=== PATIENT | female | born 1950 | race Two or more races ===

== ENCOUNTER → 2017-08-26 | Outpatient (CLI) | payer OTHER, MEDICARE ==
[~2017-08-26] MED LIST: ASPI1TAB PO; ATEN50TA2 PO; ATOR1TAB21 PO; CALC1CAP31 PO; FEBU40TA PO; FURO20TA2 PO; FURO40TA2 PO; HYDR-3713 PO; HYDR12CA PO; INSUDET SC; INSUHUMDS SC; ISOVUE-300 61% 50ML VIAL (Q9967) As Ordered ONE; JANU25TA PO; LIDOCAINE 2% MDV 20 ML VIAL As Ordered ONE; LISI-542 PO; MIDAZOLAM INJ 2 MG/2 ML VIAL (J2250) As Ordered ONE; MOME50SP; NYST10PW TOP; POTA10PO PO; RENV2TAB PO; TYLETAB14 PO; VITA100066 PO; fentaNYL 100 MCG/2 ML INJECTION (J3010) As Ordered ONE
--- NOTE | 2017-10-01 13:00 | REPIR ---
DATE OF PROCEDURE: 08/26/2017 PREPROCEDURE DIAGNOSIS: End stage renal disease, dysfunctional left brachiocephalic arteriovenous fistula, right internal jugular vein PermaCath. POSTPROCEDURE DIAGNOSIS: End stage renal disease, dysfunctional left brachiocephalic arteriovenous fistula, right internal jugular vein PermaCath. PROCEDURE: Left brachiocephalic arteriovenous fistulogram, retrograde left brachial artery angiogram, right internal jugular vein PermaCath removal. SURGEON: Dr. Shadi Hicks. CLINICAL ASSOCIATE: Niki Reynaga and Yue Winter. ANESTHESIA: Local with sedation with 2 mg of Versed, 50 mcg of Fentanyl and 10 mL of 2% lidocaine. ESTIMATED BLOOD LOSS: FLUORO TIME: 2.222 minutes. CONTRAST: 3 mL. SEDATION TIME: From 1357 to 1410 for a total of 13 minutes. COMPLICATIONS: None. DRAINS: None. SPECIMENS: None. IMPLANTS: None. INDICATION: Patient is a 66-year-old female who underwent creation of a left brachiocephalic arteriovenous fistula which has been slow to mature and difficult to use and has finally been being used successfully with only minimal difficulty. Patient does have continued difficulty with cannulation and occasional excessive bleeding. Patient will undergo a fistulogram with possible angioplasty and stent and if there is no contraindication, the patient will undergo removal of the right internal jugular vein PermaCath. Risks, benefits and alternative treatment options were discussed with the patient. PROCEDURE: The patient was taken to the angiography suite and placed supine on the angiography room table and the left upper extremity and right neck and chest region were prepped and draped in a standard surgical fashion. The arteriovenous fistula was cannulated with a micropuncture needle after anesthetizing the overlying skin with 1% lidocaine. The micropuncture wire was advanced through the micropuncture needle which was upsized to a micropuncture sheath. The fistulogram and retrograde left brachial artery angiogram were performed showing no intervention was required. The sheath was removed and manual compression was applied at the puncture site for hemostasis. The right internal jugular vein was then removed. Initial attempts to remove the catheter with manual traction were unsuccessful and then the skin and overlying tissue were anesthetized with 2% lidocaine after which the cuff was sharply dissected free through the entry site in the right chest and the catheter was removed and manual compression applied for hemostasis. Dressings were then applied. Patient tolerated the procedure well. All instrument, sponge and needle counts were correct at the end of the case. There were no complications. Dr. Hicks was present for and directed the entire case. Patient was transferred to the holding area and subsequently discharged in stable condition. RADIOLOGIC SUPERVISION INTERPRETATION: The brachiocephalic arteriovenous fistula was widely patent with no stenosis or obstructions noted. The retrograde brachial artery angiogram was widely patent showing no intervention required. The right internal jugular vein PermaCath was then removed without difficulty.
== END | disposition home or self-care (01) ==
LOC: M IRPRO 13:05
PROVIDERS: ATTEND Surgery Vascular Surgery
DX: T82.590A Other mechanical complication of surgically created arteriovenous fistula, initial encounter (principal); N18.6 End stage renal disease
CPT/HCPCS: 36589; 36901; C1894; J2250; J3010; Q9967

== ENCOUNTER → 2018-04-23 | Outpatient (CLI) | payer OTHER, MEDICARE ==
[2018-04-23 09:43] LABS: HEMATOCRIT 40.5 % (36.0-47.0); HEMOGLOBIN 13.1 g/dl (12.0-15.5); MEAN CORPUSCULAR HEMOGLOBIN 32.3 pg (27.0-33.0); MEAN CORPUSCULAR HGB CONC 32.3 g/dl (32.0-36.5); MEAN CORPUSCULAR VOLUME 99.8 fl (80.0-96.0); PLATELET COUNT, AUTOMATED 308 10^3/uL (150-450); RED BLOOD COUNT 4.06 10^6/uL (4.00-5.40); RED CELL DISTRIBUTION WIDTH 15.6 % (11.5-14.5)
[2018-04-23 10:10] LABS: INR 0.99; PROTHROMBIN TIME 13.1 SECONDS (12.1-14.4)
== END ==
LOC: M LAB 08:17
DX: Z99.2 Dependence on renal dialysis (principal)
CPT/HCPCS: 85610

== ENCOUNTER → 2018-05-12 | Outpatient (REF) | payer MEDICARE, OTHER | LOC: M LAB REF 18:28 | DX: D23.72 Other benign neoplasm of skin of left lower limb, including hip (principal) | CPT/HCPCS: 88305 ==

== ENCOUNTER → 2018-07-02 | Outpatient (REF) | payer MEDICARE, OTHER | LOC: M LAB REF 12:38 | DX: L97.122 Non-pressure chronic ulcer of left thigh with fat layer exposed (principal) | CPT/HCPCS: 88304 ==

== ENCOUNTER 2018-09-11 08:38 | Outpatient (CLI) | payer OTHER, MEDICARE ==
[~2018-09-11 08:38] MED LIST changes: +ALTEPLASE 2 MG/2 ML VIAL (J2997 PER 1MG) As Ordered ONE; +HEPARIN 1,000 UNITS/ML 10ML VIAL (FOR RADIOLOGY& DIALYSIS ONLY) As Ordered ONE; -ISOVUE-300 61% 50ML VIAL (Q9967) As Ordered ONE; -LIDOCAINE 2% MDV 20 ML VIAL As Ordered ONE; -MIDAZOLAM INJ 2 MG/2 ML VIAL (J2250) As Ordered ONE; -fentaNYL 100 MCG/2 ML INJECTION (J3010) As Ordered ONE
[2018-09-11] MEDS ORDERED: LIDOCAINE 2% MDV 20 ML VIAL As Ordered ONE (09:44)
[2018-09-11] MEDS ORDERED: ISOVUE-300 61% 50ML VIAL (Q9967) As Ordered ONE (09:44)
[2018-09-11] MEDS ORDERED: fentaNYL 100 MCG/2 ML INJECTION (J3010) As Ordered ONE ×2 (11:40→13:34)
[2018-09-11] MEDS ORDERED: MIDAZOLAM INJ 2 MG/2 ML VIAL (J2250) As Ordered ONE ×3 (11:41→15:32)
[2018-09-11] MEDS ORDERED: HEPARIN 25,000 UNITS/250 ML D5W BAG (100 UNITS/ML) As Ordered ONE (12:42)
[2018-09-11] MEDS ORDERED: HEPARIN SOD (PORCINE) 5000 UNITS/ML VIAL IV SCH (13:00)
[2018-09-11] MEDS ORDERED: LIDOCAINE 1% SDV INJ 30 ML VIAL As Ordered ONE (13:05)
[2018-09-11] MEDS ORDERED: HEPARIN SOD (PORCINE) 5000 UNITS/ML VIAL As Ordered ONE ×2 (13:06→15:59)
[2018-09-11] MEDS ORDERED: BUPIVACAINE HCL 0.5% 30 ML VIAL As Ordered ONE (13:06)
[2018-09-11] MEDS ORDERED: PROPOFOL 500 MG/50 ML VIAL As Ordered ONE (13:34)
[2018-09-11] MEDS ORDERED: LIDOCAINE 2% INJ 100 MG/5 ML SDV (FOR ANES.) As Ordered ONE (13:35)
[2018-09-11 13:36] LABS: BASO % 0.2 % (0.0-1.0); EOS # 0.1 10^3/uL (0.0-0.50); EOS % 0.7 % (0.0-3.0); HEMATOCRIT 34.6 % (36.0-47.0); HEMOGLOBIN 10.9 g/dl (12.0-15.5); LYMPH # 1.6 10^3/uL (1.5-4.5); LYMPH % 15.2 % (24.0-44.0); MEAN CORPUSCULAR HEMOGLOBIN 31.7 pg (27.0-33.0); MEAN CORPUSCULAR HGB CONC 31.5 g/dl (32.0-36.5); MEAN CORPUSCULAR VOLUME 100.6 fl (80.0-96.0); MONO # 0.6 10^3/uL (0.0-0.8); MONO % 5.4 % (0.0-5.0); NEUTROPHILS # 8.1 10^3/uL (1.8-7.7); NEUTROPHILS % 77.9 % (36.0-66.0); PLATELET COUNT, AUTOMATED 234 10^3/uL (150-450); RED BLOOD COUNT 3.44 10^6/uL (4.00-5.40); WHITE BLOOD COUNT 10.4 10^3/uL (4.0-10.0)
[2018-09-11 13:47] LABS: INR 1.01; PROTHROMBIN TIME 13.4 SECONDS (12.1-14.4)
[2018-09-11 13:48] LABS: PARTIAL THROMBOPLASTIN TIME 27.6 SECONDS (25.4-37.6)
[2018-09-11] MEDS ORDERED: HEPARIN DRIP 25,000 UNITS in APPROPRIATE DILUENT 1 EA IV SCH (14:30)
[2018-09-11 14:34] LABS: BILIRUBIN,TOTAL 0.5 MG/DL (0.2-1.0); CALCIUM LEVEL 8.8 MG/DL (8.8-10.2); GLOMERULAR FILTRATION RATE 4.2 (>45); POTASSIUM SERUM 3.5 MEQ/L (3.5-5.1); TOTAL PROTEIN 7.6 GM/DL (6.4-8.2)
[2018-09-11] MEDS ORDERED: KETAMINE HCL 200 MG/20 ML VIAL As Ordered ONE (15:50)
[2018-09-11] MEDS ORDERED: ONDANSETRON 4MG/2ML VIAL (J2405) As Ordered ONE (16:09)
[2018-09-11] MEDS ORDERED: NORCO, ANEXSIA 5/325MG TABLET (HYDROcodone/ACETAMINOPHEN) PO PRN (17:00)
[2018-09-11] MEDS ORDERED: ONDANSETRON 4MG/2ML VIAL (J2405) IV PRN (17:00)
[2018-09-11] MEDS ORDERED: NS 1,000 ML IV SCH (17:00)
[2018-09-11 17:40] VITALS: BP 140/68
[2018-09-11] MEDS ORDERED: SUGAMMADEX SODIUM 500 MG/5 ML VIAL (BRIDION) As Ordered ONE (17:53)
--- NOTE | 2018-09-30 10:12 | REPIR ---
DATE OF PROCEDURE: 09/11/2018 PREPROCEDURE DIAGNOSES: End-stage renal disease, thrombosed left brachiocephalic arteriovenous fistula. POSTPROCEDURE DIAGNOSES: End-stage renal disease, thrombosed left brachiocephalic arteriovenous fistula. PROCEDURE: Infusion of thrombolytic with 6 mg of TPA and 5000 units of heparin into the thrombosed left brachiocephalic arteriovenous fistula, left brachiocephalic arteriovenous fistulogram, percutaneous mechanical and chemical thrombolysis and thrombectomy of the thrombosed left brachiocephalic arteriovenous fistula, left cephalic vein angioplasty, two cannulations of the left brachiocephalic arteriovenous fistula, one directed toward the venous outflow, one directed toward the arterial venous anastomosis, selective left brachial artery catheter placement with angiogram and runoff, left cephalic vein and brachial artery angioplasty. SURGEON: Dr. Cherise Hicks. METROLOGY ENGINEER: Tonia Iniguez and Niki Reynaga. INDICATION: The patient is a 67-year-old female with end-stage renal disease who dialyzes through a left brachiocephalic arteriovenous fistula who has thrombosis of the left brachiocephalic arteriovenous fistula and will undergo fistulogram with thrombectomy and thrombolysis. Risks, benefits, and alternative treatment options were discussed with the patient. Anesthesia: Local with sedation with 4 mg Versed, 200 mcg of fentanyl and 7 mL of 2% lidocaine. FLUORO TIME: 6.2 minutes. CONTRAST: 4 mL of Isovue 300. SEDATION TIME: 11:44 a.m. to 12:52 a.m. for a total of 74 minutes. The sedation was administered by myself through the access in the arteriovenous fistula. The cardiopulmonary monitoring was performed by the registered nurse in the room under my direct supervision. I was present for and directed the entire case. HEPARIN: 5000 units, TPA 6 mg COMPLICATIONS: None. DRAINS: None. SPECIMENS: None. IMPLANTS: None. PROCEDURE: The patient underwent preinjection of the thrombosed left brachiocephalic arteriovenous fistula through a butterfly needle with 6 mg TPA and 5000 units of heparin which was allowed to dwell for 1 hour. The patient was then taken to the angiography, placed on the angiography room table and prepped and draped in a standard surgical fashion. The micropuncture wire was advanced through the butterfly catheter and needle into the fistula which was then used to upsize to a micropuncture sheath. A Bentson wire was advanced through the micropuncture sheath which was placed through the cephalic vein into the central venous system and a #7-Ugandan sheath was placed. A second cannulation of the fistula was performed directed toward the arteriovenous anastomosis. The catheter and wire were advanced to the fistula and into the brachial artery in a retrograde fashion and a selective brachial artery angiogram was performed showing occlusion of the fistula with minimal flow noted. The cephalic vein was then angioplastied and a mechanical thrombectomy was performed with the balloon with aspiration on the sheath with removal of thrombus. The brachial artery and cephalic vein underwent angioplasty. 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 The catheters were removed. The sheath and wires remained in place and the patient had dressings applied and will be taken to the operating room for open mechanical thrombectomy of the thrombosed left brachiocephalic arteriovenous fistula. All instrument, sponge and needle counts were correct at the end of the case. There were no complications. Dr. Hicks was present for and directed the entire case. The patient was transferred to the holding area and subsequently to the operating room in stable condition. RADIOLOGY SUPERVISION INTERPRETATION: The patient underwent inflation of thrombolytic and angioplasty of the brachial artery and cephalic vein with mechanical and chemical thrombolysis and thrombectomy percutaneously with removal of and dissolution of a few thrombus but there was chronic thrombus which remained in the fistula in the aneurysmal area preventing complete and non-obstructive flow in the fistula. The patient will be taken to the operating room and undergo a mechanical open thrombectomy of the left brachiocephalic arteriovenous fistula.
--- NOTE | 2018-10-01 14:31 | RO ---
DATE OF PROCEDURE: 09/11/2018 ATTENDING SURGEON: Dr. Cherise Hicks BARISTA: Hua Anderson PA-C PREOPERATIVE DIAGNOSIS: End-stage renal disease, thrombosed left brachiocephalic arteriovenous fistula. POSTOPERATIVE DIAGNOSIS: End-stage renal disease, thrombosed left brachiocephalic arteriovenous fistula. PROCEDURE: Left brachiocephalic arteriovenous fistula, open thrombectomy with 5 and 5 Jessy balloons. INDICATION: The patient is a 67-year-old female who presented with thrombosis of her left brachiocephalic arteriovenous fistula and underwent percutaneous mechanical and chemical thrombectomy and thrombolysis with finding of chronic thrombus within the fistula in the aneurysmal area that was not amenable to percutaneous, mechanical or chemical thrombectomy and thrombolysis. The patient will now undergo open thrombectomy of the thrombosed left brachiocephalic arteriovenous fistula. Risks, benefits and alternative treatment options were discussed with the patient. ANESTHESIA: Local MAC. ESTIMATED BLOOD LOSS: 100 mL. IV FLUIDS: 250 mL. HEPARIN: 6000 units. SPECIMEN: Left brachiocephalic arteriovenous fistula thrombus. COMPLICATIONS: None. DRAINS: None. IMPLANTS: None. DESCRIPTION OF PROCEDURE: The patient was taken to the operating room, placed supine on the operating room table and the left upper extremity was prepped and draped in a standard surgical fashion. The incision was made overlying the cephalic vein at the antecubital fossa after anesthetizing the overlying skin with 1% lidocaine mixed with 0.5% Marcaine. Incision was then made exposing the cephalic vein which was clamped proximally and distally after being dissected proximally and distally and encircled with a vessel loop. A small venotomy was made using an 11 blade scalpel and elongated with No scissors and 3 and 4 Jessy balloon catheters were used to perform mechanical thrombectomy of the fistula in both antegrade and retrograde fashion with removal of a large amount of chronic and acute thrombus. The antegrade flow was noted to be good with release of the distal clamp. The proximal clamp was removed and there was noted to be good backbleeding from the cephalic vein with no residual thrombus noted. The venotomy was closed using #6-0 Prolene suture in running continuous fashion. The clamps were removed and there was good flow through the fistula which had a holosystolic thrill at the completion of the thrombectomy. The skin overlying the cephalic vein was then closed using martin. Dressings were applied. The patient tolerated the procedure well. All instrument, sponge and needle counts were correct at the end of the case. There were no complications. Dr. Hicks was present for and directed the entire case. The previously placed sheath and wires were then removed with #2-0 Prolene pursestring sutured placed at the puncture sites for hemostasis. The patient was transferred to the recovery room awake, alert, extubated and in stable condition. The fistula is stable for use for hemodialysis access.
== END 2018-09-11 17:50 | disposition home or self-care (01) ==
LOC: M IRPRO 08:38 → M MSPAV 14:21 → M IRPRO 17:50
PROVIDERS: ATTEND Surgery Vascular Surgery
DX: T82.868A Thrombosis due to vascular prosthetic devices, implants and grafts, initial encounter (principal); N18.6 End stage renal disease
CPT/HCPCS: 36415; 36831; 80053; 85025; 85610; 85730; 86850; 86900; 86901; 88304; C1725; C1769; C1887; C1894; J2250; J2405; J2997; J3010; Q9967

== ENCOUNTER → 2018-10-15 | Outpatient (CLI) | payer OTHER, MEDICARE ==
[~2018-10-15] MED LIST changes: -ALTEPLASE 2 MG/2 ML VIAL (J2997 PER 1MG) As Ordered ONE; -HEPARIN 1,000 UNITS/ML 10ML VIAL (FOR RADIOLOGY& DIALYSIS ONLY) As Ordered ONE; +ISOVUE-300 61% 50ML VIAL (Q9967) As Ordered ONE; +LIDOCAINE 2% MDV 20 ML VIAL As Ordered ONE; +MIDAZOLAM INJ 2 MG/2 ML VIAL (J2250) As Ordered ONE; +fentaNYL 100 MCG/2 ML INJECTION (J3010) As Ordered ONE
--- NOTE | 2018-11-04 07:50 | REPIR ---
DATE OF PROCEDURE: 10/15/2018 ATTENDING SURGEON: Dr. Cherise Hicks MANAGER HOSPITALITY: Patrice Langley and Niki Reynaga PREOPERATIVE DIAGNOSIS: End-stage renal disease, dysfunctional left brachiocephalic arteriovenous fistula. POSTOPERATIVE DIAGNOSIS: End-stage renal disease, dysfunctional left brachiocephalic arteriovenous fistula. PROCEDURE: Left brachiocephalic arteriovenous fistulogram, retrograde left brachial artery angiogram, left subclavian vein angioplasty with 10 x 80 mm balloon, left cephalic vein angioplasty with 10 x 80 mm balloon. INDICATION: The patient is a 67-year-old female with end-stage renal disease who dialyzes through a left brachiocephalic arteriovenous fistula. The patient has required revision and thrombectomy of the fistula and will now undergo a fistulogram with possible angioplasty stent and/or atherectomy. The procedure was described and explained to the patient in detail including drawing of pictures demonstrated the procedure and anatomy. Risks, benefits and alternative treatment options were discussed with the patient alternative options included, but were not limited to no intervention. Risks included but were not limited to infection, bleeding loss of arteriovenous access, illness and possibly need for open surgical intervention, cerebrovascular accident, myocardial infarction, pulmonary embolus, deep venous thrombosis (DVT), loss of limb, loss to life, poor outcome, and poor results. All of the patient's questions were answered. The patient voices understanding and acceptance of these risks, benefits, and alternative options, benefits included but were not limited to continued patency and functioning of the arteriovenous fistula. No promises or guarantees were made to the patient regarding the procedure and or outcome. ANESTHESIA: Was local with sedation with 2 mg Versed 50 mcg of fentanyl and 2 mL of 2% lidocaine. FLUORO TIME: 0.5 minutes. CONTRAST: 5 mL. HEPARIN: None. COMPLICATIONS: None. DRAINS: None. SPECIMEN: None. IMPLANTS: None. SEDATION TIME: 10:05 a.m. to 10:24 a.m. for a total of 19 minutes. The sedation was administered by myself via access through the arteriovenous fistula. The cardiopulmonary monitoring was performed by the registered nurse in the room under my direct supervision. I was present for and directed the entire case. The patient returned to pre-sedation status at the completion of procedure with no sedation related complications. PROCEDURE: The patient was taken to the angiography suite, placed on the angiography room table and then prepped and draped in a standard surgical fashion. The left brachiocephalic arteriovenous fistula was cannulated with a micropuncture needle after anesthetizing the overlying skin with 2% lidocaine. The micropuncture wire was advanced through the micropuncture needle which was upsized to a micropuncture sheath. A fistulogram was performed showing approximate 85% stenosis in the cephalic vein subclavian vein junction. A wire was advanced through the cephalic vein into the subclavian vein in the cephalic vein and subclavian vein were then angioplastied with a 10 mm x 80 mm balloon with a prolonged high-pressure inflation time. On completion of fistulogram showed resolution of the stenosis with excellent flow through the cephalic vein into the subclavian vein and essentially with no central venous stenosis noted. A retrograde brachial artery angiogram was performed during inflation of the 10 mm x 80 mm balloon showing the remainder of cephalic vein to be patent to the brachial artery. The arteriovenous anastomosis was widely patent and was good flow in the brachial artery proximal and distal to the arteriovenous anastomosis. Catheters and wires removed. A 2-0 Prolene suture was placed in the puncture site for hemostasis. Dressings were then applied. The patient tolerated the procedure well. All instrument, sponge and needle counts were correct at the end the case. There were no complications. Dr. Hicks was present for and directed the entire case. The patient was transferred to the holding area and subsequently discharged in stable condition once the 2-0 Prolene suture was removed and hemostasis noted. The procedure and results were discussed with the patient in the post procedure holding area with all the questions of the patient answered. The fistula was stable for use for continued hemodialysis access. RADIOLOGY SUPERVISION INTERPRETATION: The initial fistulogram showed stenosis at the cephalic vein subclavian vein junction which underwent angioplasty with a 10 mm x 80 mm balloon with high-pressure prolonged inflation. Followup fistulogram showed resolution of the stenosis with no central venous stenosis or occlusion noted. The retrograde brachial artery angiogram showed the remainder of cephalic vein to be patent to the brachial artery with good flow in the brachial artery proximal distal to the arteriovenous anastomosis and no stenosis at the arteriovenous anastomosis. CONCLUSION: The patient underwent successful angioplasty of the left cephalic vein and subclavian vein with [facility] of a strong thrill to the arteriovenous fistula which was pulsatile prior to the intervention. The fistula is stable for continued hemodialysis access.
== END | disposition home or self-care (01) ==
LOC: M IRPRO 08:05
PROVIDERS: ATTEND Surgery Vascular Surgery
DX: T82.858A Stenosis of other vascular prosthetic devices, implants and grafts, initial encounter (principal); N18.6 End stage renal disease; Z99.2 Dependence on renal dialysis
CPT/HCPCS: 36902; 99152; C1725; C1769; C1894; J2250; J3010; Q9967

== ENCOUNTER → 2019-01-26 | Outpatient (CLI) | payer MEDICARE, OTHER ==
[~2019-01-26] MED LIST changes: -ASPI1TAB PO; +ASPI81TA26 PO; +BUPIVACAINE HCL 0.5% 10 ML VIAL As Ordered ONE; +ISOVUE-300 61% 100ML VIAL (Q9967) As Ordered ONE; -ISOVUE-300 61% 50ML VIAL (Q9967) As Ordered ONE; +NYST-15 TOP; -NYST10PW TOP
--- NOTE | 2019-02-17 08:14 | REPIR ---
DATE OF PROCEDURE: 01/26/2019 ATTENDING SURGEON: Dr. Cherise Hicks LINE SUPERVISOR: Patrice Langley and Tonia Iniguez PREOPERATIVE DIAGNOSES: End-stage renal disease, dysfunctional left brachiocephalic arteriovenous fistula. POSTOPERATIVE DIAGNOSES: End-stage renal disease, dysfunctional left brachiocephalic arteriovenous fistula. PROCEDURE: Left brachiocephalic arteriovenous fistulogram, retrograde left brachial artery angiogram, left cephalic vein angioplasty with 10 x 80 balloon, left subclavian vein angioplasty with 10 x 80 balloon, left innominate vein angioplasty with 10 x 80 balloon. INDICATION: The patient is a 68-year-old female with end-stage renal disease who dialyzes through a left brachiocephalic arteriovenous fistula who has had difficulty with excessive bleeding on decannulation and pulsatility within the fistula. The patient will undergo a fistulogram with possible angioplasty stent and/or atherectomy. Risks, benefits and alternative options were discussed with the patient. ANESTHESIA: Was local with sedation with 2 mg Versed, 100 micrograms of fentanyl and 2 mL of 2% lidocaine mixed with 0.5% Marcaine. FLUORO TIME: 3.2 minutes. CONTRAST: 4 mL of Isovue-300. SEDATION TIME: Was from 8:24 a.m. to 8:52 a.m. for a total of 28 minutes. COMPLICATIONS: None. DRAINS: None. SPECIMENS: None. IMPLANTS: None. PROCEDURE: The patient was taken to the angiography suite, placed supine on the angiography room table and then prepped and draped in a standard surgical fashion. The left brachiocephalic arteriovenous fistula was cannulated with a micropuncture needle. A fistulogram was performed showing stenosis in the cephalic vein, subclavian vein, and innominate vein. The left cephalic vein, subclavian vein, and innominate vein were angioplastied with a 10 x 80 mm balloon. During inflation the balloon a retrograde left brachial artery angiogram was performed showing no intervention was required. A completion fistulogram showed resolution of the stenosis with excellent flow through the fistula and into the central venous system with no residual stenosis remaining. Catheters and wires were removed. A 2-0 Prolene suture was placed at the puncture site for hemostasis. Dressings were then applied. The patient tolerated procedure well. All instruments, sponges, and needle counts were correct at the end the case. There were no complications. Dr. Hicks was present for and directed the entire case. The patient was transferred to [facility] area and subsequently discharged in stable condition. The left brachiocephalic arteriovenous fistula stable for continued use for hemodialysis access.
== END | disposition home or self-care (01) ==
LOC: M IRPRO 06:38
PROVIDERS: ATTEND Surgery Vascular Surgery
DX: T82.858A Stenosis of other vascular prosthetic devices, implants and grafts, initial encounter (principal); N18.6 End stage renal disease; Z99.2 Dependence on renal dialysis
CPT/HCPCS: 36902; 36907; C1725; C1769; C1894; J2250; J3010; Q9967

== ENCOUNTER → 2019-05-11 | Outpatient (CLI) | payer MEDICARE, OTHER ==
[~2019-05-11] MED LIST changes: +CINA30TA4; -FEBU40TA PO; +FEBU40TA4 PO; -ISOVUE-300 61% 100ML VIAL (Q9967) As Ordered ONE; +ISOVUE-300 61% 50ML VIAL (Q9967) As Ordered ONE; +LANT500C; +MIDO5TA; +diphenhydrAMINE INJ 50MG/ML VIAL (J1200) As Ordered ONE
[2019-05-11 11:19] VITALS: BP 123/62
--- NOTE | 2019-05-27 12:35 | REPIR ---
DATE OF PROCEDURE: 05/11/2019 ATTENDING SURGEON: Dr. Pankaj Hicks CHIP APPLYING MACHINE TENDER: Yue Jama and Niki Reynaga PREOPERATIVE DIAGNOSES: End-stage renal disease, dysfunctional left brachiocephalic arteriovenous fistula. POSTOPERATIVE DIAGNOSES: End-stage renal disease, dysfunctional left brachiocephalic arteriovenous fistula. PROCEDURE: Left brachiocephalic arteriovenous fistulogram, retrograde left brachial artery angiogram, left cephalic vein angioplasty with 10 x 80 mm balloon, left subclavian vein angioplasty with 10 x 80 mm balloon. INDICATIONS: The patient is a 68-year-old female with end-stage renal disease who dialyzes through a left brachiocephalic arteriovenous fistula. The patient has had difficulty with pulsatility within the fistula, excessive bleeding on decannulation and poor venous flow rates. The patient will undergo a fistulogram and possible angioplasty, stent and/or atherectomy. Risks, benefits and alternative treatment options were discussed with the patient. ANESTHESIA: Local with sedation with 1 mg Versed, 50 mcg of fentanyl and 3 mL of 0.5% Marcaine mixed with 2% lidocaine, Benadryl 50 mg. FLUORO TIME: 0.7 minutes. CONTRAST: 3 mL. SEDATION TIME: 10:56 to 11:12 for a total of 16 units. HEPARIN: None. COMPLICATIONS: None. DRAINS: None. SPECIMENS: None. IMPLANTS: None. PROCEDURE: The patient was taken to the angiography suite, placed supine on the angiography room table and then prepped and draped in a standard surgical fashion. The left brachiocephalic arteriovenous fistula was cannulated with a micropuncture needle after anesthetizing the overlying skin and subcutaneous tissue with local anesthesia. The micropuncture wire was advanced through the micropuncture needle, which was upsized to a micropuncture sheath. A fistulogram was performed through the micropuncture sheath, which demonstrated a stenosis in the cephalic vein/subclavian vein junction. The subclavian vein with angioplastied with a 10 x 8 balloon. The cephalic vein with angioplastied with a 10 x 8 balloon. The completion fistulogram showed resolution of the stenosis with excellent flow through the cephalic vein into the subclavian vein and centrally. A retrograde left brachial artery angiogram was performed during inflation of the 10 x 8 balloon showing no intervention required. Catheters and wires were removed. The sheath was removed and a 2-0 Prolene suture was placed at the puncture site for hemostasis. Dressings were then applied. The patient tolerated the procedure well. All instrument, sponge, needle counts were correct at the end of case. There were no complications. Dr. Hicks was present for and directed the entire case. The patient was transferred to the holding area and subsequent discharged in stable condition.
== END ==
LOC: M IRPRO 09:16
PROVIDERS: ATTEND Surgery Vascular Surgery
DX: T82.898A Other specified complication of vascular prosthetic devices, implants and grafts, initial encounter (principal); N18.6 End stage renal disease; E11.22 Type 2 diabetes mellitus with diabetic chronic kidney disease; E78.5 Hyperlipidemia, unspecified; M10.9 Gout, unspecified; X58.XXXA Exposure to other specified factors, initial encounter; Y93.9 Activity, unspecified; Y92.9 Unspecified place or not applicable; Y99.9 Unspecified external cause status
CPT/HCPCS: 36902; 36907; C1725; C1769; C1894; J1200; J2250; J3010; Q9967

== ENCOUNTER 2019-05-16 15:49 | Emergency (ER) | payer MEDICARE, OTHER ==
[~2019-05-16] VITALS: Ht 170.2 cm; Wt 161.4 kg
[~2019-05-16 15:49] MED LIST changes: -BUPIVACAINE HCL 0.5% 10 ML VIAL As Ordered ONE; -ISOVUE-300 61% 50ML VIAL (Q9967) As Ordered ONE; -LIDOCAINE 2% MDV 20 ML VIAL As Ordered ONE; -MIDAZOLAM INJ 2 MG/2 ML VIAL (J2250) As Ordered ONE; -diphenhydrAMINE INJ 50MG/ML VIAL (J1200) As Ordered ONE; -fentaNYL 100 MCG/2 ML INJECTION (J3010) As Ordered ONE
[2019-05-16] MEDS ORDERED: ONDANSETRON 4MG/2ML VIAL (J2405) IV ONE (16:30)
[2019-05-16] MEDS ORDERED: METOCLOPRAMIDE INJ 10MG/2ML VIAL (J2765) IV ONE (16:30)
[2019-05-16] MEDS ORDERED: NS 1,000 ML IV ONE (16:30)
[2019-05-16] MEDS ORDERED: diphenhydrAMINE INJ 50MG/ML VIAL (J1200) IV ONE (16:30)
[2019-05-16 16:32] LABS: BASO % 0.2 % (0.0-1.0); EOS # 0.1 10^3/uL (0.0-0.50); EOS % 0.5 % (0.0-3.0); HEMATOCRIT 38.8 % (36.0-47.0); HEMOGLOBIN 12.2 g/dl (12.0-15.5); LYMPH % 19.3 % (24.0-44.0); MEAN CORPUSCULAR HEMOGLOBIN 32.8 pg (27.0-33.0); MEAN CORPUSCULAR HGB CONC 31.4 g/dl (32.0-36.5); MEAN CORPUSCULAR VOLUME 104.3 fl (80.0-96.0); MONO # 0.7 10^3/uL (0.0-0.8); MONO % 6.5 % (0.0-5.0); NEUTROPHILS # 7.4 10^3/uL (1.8-7.7); NEUTROPHILS % 73.1 % (36.0-66.0); PLATELET COUNT, AUTOMATED 345 10^3/uL (150-450); RED BLOOD COUNT 3.72 10^6/uL (4.00-5.40); WHITE BLOOD COUNT 10.1 10^3/uL (4.0-10.0)
[2019-05-16 16:42] LABS: CREATININE FOR GFR 8.32 MG/DL (0.55-1.30); GLOMERULAR FILTRATION RATE 5.1 (>45); MAGNESIUM LEVEL 2.7 MG/DL (1.8-2.4); POTASSIUM SERUM 4.1 MEQ/L (3.5-5.1)
[2019-05-16 18:49] VITALS: BP 131/59
== END 2019-05-16 18:50 | disposition home or self-care (01) ==
LOC: M ED 15:49
DX: E86.0 Dehydration (principal); E11.9 Type 2 diabetes mellitus without complications; I12.9 Hypertensive chronic kidney disease with stage 1 through stage 4 chronic kidney disease, or unspecified chronic kidney disease; N18.9 Chronic kidney disease, unspecified; K21.9 Gastro-esophageal reflux disease without esophagitis; Z99.2 Dependence on renal dialysis; Z79.899 Other long term (current) drug therapy; Z79.82 Long term (current) use of aspirin; Z79.4 Long term (current) use of insulin
CPT/HCPCS: 80048; 83735; 85025; 96361; 96374; 96375; 99284; J1200; J2405; J2765

== ENCOUNTER → 2019-08-31 | Outpatient (CLI) | payer MEDICARE, OTHER ==
[~2019-08-31] MED LIST changes: +ISOVUE-300 61% 50ML VIAL (Q9967) As Ordered ONE; +LIDOCAINE 1% MDV 20ML VIAL As Ordered ONE; +MIDAZOLAM INJ 2 MG/2 ML VIAL (J2250) As Ordered ONE; +RENATAB5; +fentaNYL 100 MCG/2 ML INJECTION (J3010) As Ordered ONE
--- NOTE | 2019-08-31 11:00 | ROOPDOC ---
[facility] Report Of Operation Report of Operation DATE OF PROCEDURE: 08/31/19 PREPROCEDURE DIAGNOSES: End-stage renal disease with poorly functioning left upper extremity AV fistula. POSTPROCEDURE DIAGNOSES: Same. PROCEDURE: 1. Ultrasound-guided access left cephalic vein fistula 2. Left upper extremity fistulogram and central venogram 3. Angioplasty left cephalic vein subclavian vein junction with 8 x 20 cutting balloon and 10 x 80 [place] balloon 4. Completion venogram SURGEON: Priyanka Barber MD ANESTHESIA: Local anesthesia 3 mL lidocaine. Monitored intravenous conscious sedation was administered by Dr. Barber. The patient was independently monitored by a registered nurse assigned to the Department of radiology using automated blood pressure, EKG, pulse oximetry. The detailed sedation record is permanently Isaac the hospital information system. The following is a brief sedation record: Start time 10:23, Stop time 10:41, versed 0.5 mg IV, fentanyl 25 g IV. INDICATION FOR PROCEDURE: Ms. Bar is a very pleasant 68-year-old patient with a brachiocephalic fistula in the left upper extremity that has become pulsatile, increased bleeding after treatments, and there is concern for recurrent venous outflow issues. Risks benefits and alternatives to elective left upper extremity fistulogram with intervention were explained to the patient. She is agreeable to proceed. Informed consent was obtained. INTERPRETATION: 1. The AV anastomosis and cephalic vein proximal to the anastomosis is widely patent with mild aneurysmal segments and areas of frequent access. Proximal to this, there is one large branch in the mid upper arm that helps with outflow and does not need to be quelled or treated. Proximal to this, there is a 99% loni nosis at the cephalic vein subclavian junction with widely patent flow through the cephalic vein into the central system. 2. After angioplasty of the cephalic vein subclavian junction, there is less than 10% residual stenosis and widely patent flow with a dramatic improvement in thrill at the AV fistula. REPORT OF OPERATION: The patient was brought to the angiographic suite in stable condition. Her left upper extremity was prepped and draped in sterile fashion. A timeout was performed. Local anesthesia was administered to the skin and subcutaneous tissue over the cephalic vein near the AV anastomosis. A microneedle was used to access the vein under ultrasound guidance. A wire was passed through this access under fluoroscopic guidance and a micro-sheath was placed. Through this access a fistulogram and central venogram were performed. Please see interpretation above. Next, a Glidewire was passed through this access under fluoroscopic guidance into the central system and the sheath was exchanged for a 7 Slovenian sheath and flushed with saline. We then extended the wire for an O18 wire and advanced this into the central system along with an 8 x 20 cutting balloon. The cutting balloon was used to angioplasty the cephalic subclavian junction and 5 angioplasties were performed in order to score the area to allow for greater dilation with the next balloon. We then exchanged for 10 x 80 [place] balloon and 2 three-minute inflations were performed across the area. Following this, there was a dramatic improvement in the vein diameter at the junction, with less than 10% residual stenosis. There is rapid flow through the fistula into the central system and a dramatic improvement in thrill at the AV anastomosis. The pulsatility had resolved. There was no extravasation noted o n final imaging. Local anesthesia was again administered around the sheath and then a Prolene suture was placed in a [id number] around the sheath and the sheath was removed. The suture was secured and pressure was held for 10 minutes for good hemostasis. The patient was then taken recovery in stable condition. The stitch will be removed before she leaves. She tolerated the procedure very well. ESTIMATED BLOOD LOSS: Approximately 4 mL. COMPLICATIONS: None. PLAN: Okay to use AV fistula for dialysis. Okay to resume all home medications. PRIYANKA BARBER MD Aug 31, 2019 11:00
[2019-08-31 11:15] VITALS: BP 111/54
== END ==
LOC: M IRPRO 09:29
PROVIDERS: ATTEND Surgery Vascular Surgery
DX: T82.898A Other specified complication of vascular prosthetic devices, implants and grafts, initial encounter (principal); N18.6 End stage renal disease; I12.0 Hypertensive chronic kidney disease with stage 5 chronic kidney disease or end stage renal disease; E11.22 Type 2 diabetes mellitus with diabetic chronic kidney disease; E78.00 Pure hypercholesterolemia, unspecified; Z79.899 Other long term (current) drug therapy; Z79.4 Long term (current) use of insulin; Z79.82 Long term (current) use of aspirin; X58.XXXA Exposure to other specified factors, initial encounter; Y93.9 Activity, unspecified; Y92.9 Unspecified place or not applicable; Y99.9 Unspecified external cause status
CPT/HCPCS: 36902; 99152; C1725; C1769; C1894; J2250; J3010; Q9967

== ENCOUNTER → 2020-09-12 | Outpatient (CLI) | payer MEDICARE, OTHER ==
[~2020-09-12] MED LIST changes: -ISOVUE-300 61% 50ML VIAL (Q9967) As Ordered ONE; +ISOVUE-300 61% 50ML VIAL As Ordered ONE; -LANT500C; +LANT500C PO; +LIDO2.5C15 TOP; -MIDAZOLAM INJ 2 MG/2 ML VIAL (J2250) As Ordered ONE; +MIDAZOLAM INJ 2MG/2ML VIAL (J2250 PER 1MG) As Ordered ONE; +ZOFR4TAB16 PO
--- NOTE | 2020-09-12 13:37 | ROOPDOC ---
[facility] Report Of Operation Report of Operation DATE OF PROCEDURE: 09/12/20 PREPROCEDURE DIAGNOSES: End-stage renal disease with increased venous pressures and pulsatility left upper extremity brachiocephalic AV fistula POSTPROCEDURE DIAGNOSES: Same PROCEDURE: 1. Ultrasound-guided access left cephalic vein fistula 2. Left upper extremity fistulogram and central venogram 3. Angioplasty left proximal cephalic vein with 8 x 20 cutting balloon and 9 x 40 Isabel balloon 4. Angioplasty left subclavian vein at the thoracic outlet with 9 x 40 Isabel balloon 5. Completion venogram SURGEON: Priyanka Barber MD ANESTHESIA: Local anesthesia 4 mL lidocaine. Moderate intravenous conscious sedation was administered by Dr. Barber. The patient was independently monitored by a registered nurse assigned to the Department of radiology using automated blood pressure, EKG, and pulse oximetry. A detailed sedation record is permanently stored in the hospital information system. The following is a brief sedation record: Start time 13:04, stop time 13:21, Versed 1 mg IV, fentanyl 50 g IV. CONTRAST: 16 mL Isovue-300 INDICATION FOR PROCEDURE: This a very pleasant 69-year-old patient with a left brachiocephalic AV fistula who is been having increased pulsatility, difficulty cannulation, and poor venous outflow with dialysis treatments. Risks benefits and alternatives to a fistulogram potential intervention were explained to the patient and she is agreeable to proceed. Informed consent was obtained. INTERPRETATION: 1. The AV anastomosis was examined with ultrasound and found to be widely patent. 2. The cephalic vein is aneurysmal in the areas of frequent cannulation but widely patent, and then I estimate 8-10 mm throughout its length through the upper arm and shoulder until the junction with the subclavian vein were narrows with a proximally 95% stenosis. The central veins are widely patent except for a moderate narrowing at the thoracic outlet, I estimate 40% stenosis in the subclavian vein there. 3. After angioplasty the cephalic vein with an 8 x 20 cutting balloon and 9 x 40 Isabel balloon, there is widely patent flow with no significant residual stenosis in a dramatic improvement in the thrill of the AV fistula. 4. After angioplasty of the subclavian vein at the thoracic outlet, no significant residual stenosis remains. No extravasation embolization were noted with either angioplasty. REPORT OF OPERATION: Patient was brought to the angiographic suite in stable condition. Her left upper extremity was prepped and draped in sterile fashion. A timeout was performed. Local anesthesia was Mr. to the skin and subcutaneous ti ssue over the cephalic vein near the AV anastomosis. Ultrasound was used to examine the AV anastomosis and it was noted to be widely patent. An image was saved. Ultrasound was then used to guide access with a microneedle and a wire was passed through this access and the needle was removed and a 4 Yoruba sheath was placed under fluoroscopic guidance and flushed with saline. A Glidewire was advanced through this in the central system. A fistulogram and central venogram were performed. Please interpretation above. We then exchange the sheath for some Yoruba sheath over the wire and flushed the sheath with saline. We change the wire for 018 Glidewire advantage and an 8 x 20 cutting balloon was used angioplasty the proximal left cephalic vein for multiple inflations. Following this, there was improvement in flow but still some residual stenosis, no extravasation. We exchange the balloon for 9 x 40 Isabel balloon and his three- minute inflations was performed. Following this, there was a marked improvement inflow through the cephalic vein and no extravasation was noted. We then uses same balloon to angioplasty the subclavian vein at the thoracic outlet. After three-minute inflations, there is widely patent inflow through the subclavian vein with no significant residual stenosis. There is a marked improvement in thrill in the fistula. No pulsatility was noted. This concluded the procedure. A [id number] Prolene suture was placed at the exit site of the sheath and the sheath was removed. Pressure was held and sterile dressings were applied. The patient was then taken to recovery in stable condition with good hemostasis. She tolerated the procedure and the sedation well. ESTIMATED BLOOD LOSS: Approximately 5 mL. COMPLICATIONS: None. PLAN: Okay to use AV fistula for dialysis. Okay to resume home diet medications. We appreciate the opportunity to participate in the care of this patient. PRIYANKA BARBER MD Sep 12, 2020 13:37
[2020-09-12 13:45] VITALS: BP 116/53
== END ==
LOC: M IRPRO 11:23
PROVIDERS: ATTEND Surgery Vascular Surgery
DX: T82.590A Other mechanical complication of surgically created arteriovenous fistula, initial encounter (principal); N18.6 End stage renal disease; I12.0 Hypertensive chronic kidney disease with stage 5 chronic kidney disease or end stage renal disease; E11.22 Type 2 diabetes mellitus with diabetic chronic kidney disease; E78.00 Pure hypercholesterolemia, unspecified; X58.XXXA Exposure to other specified factors, initial encounter; Z79.82 Long term (current) use of aspirin; Z79.899 Other long term (current) drug therapy; Z99.2 Dependence on renal dialysis
CPT/HCPCS: 36902; 36907; 99152; C1725; C1729; C1769; C1894; J1644; J2250; J3010; Q9967

== ENCOUNTER → 2020-12-29 | Outpatient (CLI) | payer MEDICARE, OTHER ==
[~2020-12-29] MED LIST changes: -LISI-542 PO; +LISI-898 PO
[2020-12-29 15:15] VITALS: BP 97/54
--- NOTE | 2020-12-29 15:33 | ROOPDOC ---
[facility] Report Of Operation Report of Operation DATE OF PROCEDURE: 12/29/20 PREPROCEDURE DIAGNOSES: End-stage renal disease with increased pulsatility and bleeding times with dialysis left upper extremity brachiocephalic AV fistula POSTPROCEDURE DIAGNOSES: Same PROCEDURE: 1. Ultrasound-guided access left cephalic vein 2. Left upper extremity fistulogram and central venogram 3. Angioplasty proximal left cephalic vein and left subclavian vein with 7 x 20 cutting balloon, 8 x 100 [place]odi balloon, 9 x 40 [place]odi balloon 4. Completion venogram SURGEON: Cristine Barber MD ANESTHESIA: Local anesthesia 3 mL lidocaine. Moderate intravenous conscious sedation was administered by Dr. Barber. The patient was independently monitored by a registered nurse assigned to the Department of radiology using automated blood pressure, EKG, and pulse oximetry. The detailed sedation record is permanently stored in the hospital information system. The following is a brief sedation record: Start time 14:52, stop time 15:14, Versed 1 mg IV, fentanyl 50 g IV. INDICATION FOR PROCEDURE: This is a very pleasant 70-year-old patient with end- stage renal disease currently dialyzing with a left brachiocephalic AV fistula. She's had a few infiltrations, increased bleeding times after treatments, and increased pulsatility in her fistula. Risks benefits alternatives to a fistulog zeynep potential intervention were explained to the patient. She is agreeable to proceed. Informed consent was obtained. INTERPRETATION: 1. Ultrasound was used to examine the AV anastomosis with color flow and it was noted to be widely patent. 2. Fistulogram of the left cephalic vein reveals a widely patent vein mildly aneurysmal in the areas of frequent access near the AV anastomosis, but then also widely patent up over the bicep and over the shoulder and I estimate 8-9 mm diameter. However, at the junction with the subclavian vein, there is a 95% stenosis focally. The subclavian vein has a 40% narrowing at the thoracic outlet but is otherwise widely patent and there is excellent flow through the innominate vein back to the central system. 3. After angioplasty of the proximal cephalic vein and subclavian vein with a cutting balloon, there is definitely improve flow through the cephalic vein but still some residual stenoses. No significant improvement noted in the subclavian vein, and no extravasation noted in either area. After angioplasty across both stenoses with 8 x 100 [place] balloon, there is still some mild residual stenosis at the proximal cephalic vein and in the subclavian vein, no extravasation noted. After repeat angioplasty with a 9 x 40 Lodi balloon at each area, there is deftly an improvement in flow, no significant residual stenoses, and no extravasation. There is an excellent thrill and the fistula in the pulsatility is resolved. REPORT OF OPERATION: The patient was brought to the angiographic suite in stable condition. Her left upper extremity was prepped and draped in sterile fashion. A timeout was performed. Local anesthesia was administered to the skin and subcutaneous tissue over the left cephalic vein. A microneedle was used to access the vein under ultrasound guidance after examining the AV anastomosis, which was noted to be widely patent. A wire was passed through this access and the needle was removed and a 4 Indian sheath was placed and flushed with saline. A fistulogram and central venogram was performed: Please see interpretation above. We then accessed the central system with a Glidewire and exchange the s claudia for 7 Indian sheath over the wire. The sheath was flushed with saline. We exchange the wire for a 018 Glidewire drainage into the central system and passed a 7 x 20 cutting balloon across the proximal cephalic veins in multiple inflations, and then multiple inflations in the subclavian vein at the thoracic outlet. We then exchange the balloon over the wire for an 8 x 100 Lodi balloon and three-minute inflations were done across the central system including the proximal cephalic vein in the subclavian vein. Following this, there was a marked improvement but still some residual stenosis at both areas. We exchange the balloon over the wire for 9 x 40 Lodi balloon and three- minute inflations were done at the proximal cephalic vein and subclavian vein at the thoracic outlet. Following this, there is a marked improvement in thrill, no extravasation, [place] to the central system and no significant residual stenoses. We then injected additional local anesthesia around the sheath exit site and a [id number] Prolene suture was placed. The suture was secured as the sheath was removed. Good hemostasis was noted. Sterile dressings were applied and the patient was taken to recovery in stable condition. She tolerated the procedure and the sedation well. ESTIMATED BLOOD LOSS: Approximately 2 mL. COMPLICATIONS: none. PLAN: It is okay to use the AV fistula for dialysis. It is okay to resume home diet and medications. We appreciate the opportunity to participate in the care of this patient. CRISTINE BARBER MD Dec 29, 2020 15:33
== END ==
LOC: M IRPRO 11:55
PROVIDERS: ATTEND Surgery Vascular Surgery
DX: T82.590A Other mechanical complication of surgically created arteriovenous fistula, initial encounter (principal); N18.6 End stage renal disease; X58.XXXA Exposure to other specified factors, initial encounter; Z99.2 Dependence on renal dialysis
CPT/HCPCS: 36902; 36907; 99152; C1725; C1769; C1894; J1644; J2250; J3010; Q9967

== ENCOUNTER → 2021-02-06 | Outpatient (CLI) | payer MEDICARE, OTHER ==
[~2021-02-06] MED LIST changes: -ISOVUE-300 61% 50ML VIAL As Ordered ONE; -LIDOCAINE 1% MDV 20ML VIAL As Ordered ONE; -MIDAZOLAM INJ 2MG/2ML VIAL (J2250 PER 1MG) As Ordered ONE; -fentaNYL 100 MCG/2 ML INJECTION (J3010) As Ordered ONE
[2021-02-06 08:24] LABS: HEMATOCRIT 35.8 % (36.0-47.0); MEAN CORPUSCULAR HEMOGLOBIN 32.4 pg (27.0-33.0); MEAN CORPUSCULAR HGB CONC 30.7 g/dl (32.0-36.5); MEAN CORPUSCULAR VOLUME 105.6 fl (80.0-96.0); PLATELET COUNT, AUTOMATED 310 10^3/uL (150-450); RED BLOOD COUNT 3.39 10^6/uL (4.00-5.40); WHITE BLOOD COUNT 6.9 10^3/uL (4.0-10.0)
[2021-02-06 08:38] LABS: INR 0.99; PROTHROMBIN TIME 13.3 SECONDS (12.5-14.3)
== END ==
LOC: M LAB 07:46
PROVIDERS: ATTEND Dentist
DX: N18.6 End stage renal disease (principal)

== ENCOUNTER → 2021-05-31 | Outpatient (CLI) | payer MEDICARE, OTHER ==
[~2021-05-31] MED LIST changes: +HEPARIN SOD (PORCINE) 5000UNITS/ML 1ML VIAL/SYRINGE As Ordered ONE; +ISOVUE-300 61% 50ML VIAL As Ordered ONE; +LIDO1CRE42 TOP; -LIDO2.5C15 TOP; +LIDOCAINE 1% MDV 20ML VIAL As Ordered ONE; +MIDAZOLAM INJ 2MG/2ML VIAL (J2250 PER 1MG) As Ordered ONE; +MIDO10TA PO; +fentaNYL 100 MCG/2 ML INJECTION (J3010) As Ordered ONE
[2021-05-31 17:30] VITALS: BP 118/58
--- NOTE | 2021-06-01 09:13 | RO ---
OPERATIVE NOTE DATE OF OPERATION: 05/31/2021 PREOPERATIVE DIAGNOSIS: Left upper extremity AV fistula which is threatened with pending thrombosis secondary to intraluminal clot. POSTOPERATIVE DIAGNOSIS: Left upper extremity AV fistula which is threatened with pending thrombosis secondary to intraluminal clot. PROCEDURES PERFORMED: 1. Left upper arm fistulogram, angioplasty of the cephalic artery using 10 x 40 mm [place] balloon as well as 10 x 40 mm Bard Conquest balloon. 2. Angioplasty of brachiocephalic anastomosis using 6 x 40 mm [place] balloon and angioplasty of the cephalic vein using 14 x 40 mm [place] balloon. 3. Cutdown on cephalic vein with venotomy and surgical thrombectomy followed by primary closure of the cephalic vein. 4. Completion fistulogram. SURGEON: Adalid Leomn MD DOCUMENT PREPARATION SPECIALIST: None. ANESTHESIA: ESTIMATED BLOOD LOSS: Around 300 mL. TOTAL OPERATING TIME: 2 hours of moderate sedation and moderate sedation was given using 2 mg of Versed and 200 mcg of Fentanyl. CONTRAST USED: Around 100 mL. Lidocaine 1% was given, total of 10 mL was given to anesthetize the skin. The patient was anticoagulated throughout the procedure with 6000 units of Heparin. PROCEDURE SPECIMEN: None. COMPLICATIONS: None. PROCEDURE INDICATIONS: Ms. Brenda Bar is a patient who saw me in clinic today for difficulty with dialysis and they were pulling clots from her dialysis access. Given the fact that the fistula was pulsatile and had no thrill distally I thought she would benefit from a fistulogram with eye towards intervention urgently. The patient agreed to move forward. DESCRIPTION OF PROCEDURE: The patient was taken to the interventional suite and her left upper arm was prepped and draped in standard sterile fashion. Time out was performed confirming correct side and site of the procedure. I first started by accessing retrograde with micropuncture needle and sheath under ultrasound guidance into the cephalic vein high in the upper arm. The micropuncture sheath was switched out over a Glidewire for a 5-Filipino sheath and Berenstein catheter inserted. With Berenstein and guidewire again retrograde access into the left brachial artery and with the catheter in place again performed fistulogram. This revealed a patent brachial artery to cephalic vein AV anastomosis, it appeared to be about 5 mm in diameter. The fistula immediately distal to this was large in caliber measuring about 14-20 mm in diameter as it courses past a swing point, the needle access point, there was a large area where thrombus is noted by decrease in opacity of the AV fistula. The fistula is at least 2 cm in width in this area but very narrowed due to the thrombus which is adherent to the wall of the vessel. Downstream of this the fistula again is wide measuring about 14-15 mm in diameter and it courses up the shoulder joint where the cephalic arch has a greater than 70% narrowing focally as it joins the subclavian. The remainder of the central veins were widely patent. At this point I felt that she would benefit from angioplasty of the cephalic arch as well as surgical removal of the thrombus. In order to do this I gained access in antegrade fashion with micropuncture needle and sheath under ultrasound guidance close to the needle access points and Bentson wire was inserted and positioned at the right atrium. With the Bentson wire in place I then inserted a 14 mm [place] balloon which was positioned just distal to the area of clot which was marked on the skin and 6 mm balloon was used to obtain proximal control of the AV anastomosis. With both balloons in place now and not inflated I then performed a surgical cutdown. Lidocaine was given to anesthetize the skin directly over the area of thrombus and 11-blade was used to open the skin and soft tissue. Using Metzenbaum and DeBakey I gained access and dissected out the AV fistula and then encircled it with a vessel loop with right-hand clamp. Once encircled I then inflated both balloons and created an arteriotomy. There was a slow trickle of ooze as the balloons were probably undersized. I used combination of Paige clamps, small, medium and large to remove significant portions of thrombus, fresh as well as chronic from the AV fistula directly beneath the cutdown incision point. Once I felt I had multiple clean passes with no further thrombus remaining, I then closed the fistula using 4-0 Prolene suture in running fashion. After this I then repeated fistulogram which showed widely patent fistula now with no residual thrombus. There was an area of narrowing where the suture line probably in the order of 50% of the suture line but the fistula itself was quite large and I did not think that this was compromising the flow and the thrill was much improved also, even downstream of the suture line. At this point I then performed angioplasty of cephalic arch using 10 mm [place] balloon and post-angioplasty this showed very little improvement. I then repeated the angioplasty with 10 mm Conquest balloon at high pressures and post-angioplasty the 70% stenosis became approximately 30-40% stenosis. At this point with the thrill improved and flow improved through the fistula in general, I then withdraw all catheters and wires and placed 3-0 Monocryl sutures along the sheaths, removed both sheaths and then closed the skin edges using 2-0 Vicryl interrupted fashion and 3-0 Monocryl running subcuticular suture and then skin glue was applied to all wounds. The patient's arm was then elevated and the patient was transferred to the recovery room in stable condition. I was present and performed all critical portions of the procedure. OUTCOME: Successful left arm AV fistula thrombectomy and fistulogram with angioplasty of the cephalic arch. She should follow up with us in approximately three weeks. It is okay to use the fistula immediately for continued hemodialysis. NACHO
== END ==
LOC: M IRPRO 13:07
PROVIDERS: ATTEND Surgery Vascular Surgery
DX: T82.590A Other mechanical complication of surgically created arteriovenous fistula, initial encounter (principal); I82.612 Acute embolism and thrombosis of superficial veins of left upper extremity; I12.9 Hypertensive chronic kidney disease with stage 1 through stage 4 chronic kidney disease, or unspecified chronic kidney disease; E11.22 Type 2 diabetes mellitus with diabetic chronic kidney disease; E78.00 Pure hypercholesterolemia, unspecified; N18.9 Chronic kidney disease, unspecified; X58.XXXA Exposure to other specified factors, initial encounter; Z79.4 Long term (current) use of insulin; Z79.82 Long term (current) use of aspirin; Z79.899 Other long term (current) drug therapy
CPT/HCPCS: 36905; 99152; 99153; C1725; C1769; C1894; J1642; J1644; J2250; J3010; Q9967

== ENCOUNTER → 2021-07-19 | Outpatient (CLI) | payer MEDICARE, OTHER ==
[~2021-07-19] MED LIST changes: -HEPARIN SOD (PORCINE) 5000UNITS/ML 1ML VIAL/SYRINGE As Ordered ONE; -ISOVUE-300 61% 50ML VIAL As Ordered ONE; -LIDOCAINE 1% MDV 20ML VIAL As Ordered ONE; -MIDAZOLAM INJ 2MG/2ML VIAL (J2250 PER 1MG) As Ordered ONE; -fentaNYL 100 MCG/2 ML INJECTION (J3010) As Ordered ONE
[2021-07-19 07:57] LABS: HEMATOCRIT 35.7 % (36.0-47.0); HEMOGLOBIN 10.8 g/dl (12.0-15.5); MEAN CORPUSCULAR HEMOGLOBIN 31.7 pg (27.0-33.0); MEAN CORPUSCULAR HGB CONC 30.3 g/dl (32.0-36.5); MEAN CORPUSCULAR VOLUME 104.7 fl (80.0-96.0); PLATELET COUNT, AUTOMATED 244 10^3/uL (150-450); RED BLOOD COUNT 3.41 10^6/uL (4.00-5.40); WHITE BLOOD COUNT 7.5 10^3/uL (4.0-10.0)
[2021-07-19 08:18] LABS: INR 0.96; PROTHROMBIN TIME 13.2 SECONDS (12.7-14.5)
== END ==
LOC: M LAB 07:24
PROVIDERS: ATTEND Dentist
DX: N17.8 Other acute kidney failure (principal)

== ENCOUNTER → 2021-09-13 | Outpatient (CLI) | payer MEDICARE, OTHER ==
[~2021-09-13] MED LIST changes: -LISI-898 PO; +LISI5TAB11 PO; -MOME50SP; +NASO50SP3
== END ==
LOC: M RAD 10:58
PROVIDERS: ATTEND Surgery Vascular Surgery
DX: I77.0 Arteriovenous fistula, acquired (principal); N18.6 End stage renal disease

== ENCOUNTER → 2021-10-18 | Outpatient (CLI) | payer MEDICARE, OTHER ==
[~2021-10-18] MED LIST changes: +LISI-898 PO; -LISI5TAB11 PO; +MOME50SP; -NASO50SP3
[2021-10-18 07:27] LABS: HEMATOCRIT 36.2 % (36.0-47.0); HEMOGLOBIN 11.2 g/dl (12.0-15.5); MEAN CORPUSCULAR HEMOGLOBIN 32.4 pg (27.0-33.0); MEAN CORPUSCULAR HGB CONC 30.9 g/dl (32.0-36.5); MEAN CORPUSCULAR VOLUME 104.6 fl (80.0-96.0); PLATELET COUNT, AUTOMATED 250 10^3/uL (150-450); RED BLOOD COUNT 3.46 10^6/uL (4.00-5.40); WHITE BLOOD COUNT 5.7 10^3/uL (4.0-10.0)
[2021-10-18 07:37] LABS: INR 0.99; PROTHROMBIN TIME 13.5 SECONDS (12.7-14.5)
== END ==
LOC: M LAB 06:44
PROVIDERS: ATTEND Dentist
DX: N17.9 Acute kidney failure, unspecified (principal)

== ENCOUNTER → 2021-10-18 | Outpatient (CLI) | payer MEDICARE, OTHER ==
[~2021-10-18] MED LIST changes: -LISI-898 PO; +LISI5TAB11 PO
[2021-10-18 07:52] LABS: CHOLESTEROL RISK RATIO 3.562 (<5)
== END ==
LOC: M LAB 06:38
PROVIDERS: ATTEND Family Medicine
DX: E11.9 Type 2 diabetes mellitus without complications (principal); N17.9 Acute kidney failure, unspecified

== ENCOUNTER 2021-11-14 14:00 | Emergency (ER) | payer MEDICARE, OTHER ==
[~2021-11-14] VITALS: Ht 170.2 cm; Wt 158.2 kg
[~2021-11-14 14:00] MED LIST changes: -MOME50SP; +NASO50SP3
[2021-11-14] MEDS ORDERED: HYDR-3713 PO (14:19)
[2021-11-14] MEDS ORDERED: ONDANSETRON 4 MG ORAL DISINTEGRATING TAB PO ONE (15:10)
[2021-11-14 15:50] VITALS: BP 131/62
== END 2021-11-14 15:50 | disposition home or self-care (01) ==
LOC: M ED 14:00 → EDBD 14:00 → M ED 15:50
DX: S83.92XA Sprain of unspecified site of left knee, initial encounter (principal); E11.9 Type 2 diabetes mellitus without complications; W01.0XXA Fall on same level from slipping, tripping and stumbling without subsequent striking against object, initial encounter; Y92.009 Unspecified place in unspecified non-institutional (private) residence as the place of occurrence of the external cause; Y93.9 Activity, unspecified; Y99.9 Unspecified external cause status
CPT/HCPCS: 73552; 73564; 73590; 99284; Q0162

== ENCOUNTER 2022-05-20 14:02 | Emergency (ER) | payer MEDICARE, OTHER ==
[~2022-05-20] VITALS: Ht 170.2 cm; Wt 159.1 kg
[2022-05-20] MEDS ORDERED: ACETAMINOPHEN 325 MG TAB PO ONE (14:15)
[2022-05-20 15:02] LABS: BASO % 0.3 % (0.0-1.0); EOS # 0.1 10^3/uL (0.0-0.5); EOS % 0.9 % (0.0-3.0); HEMATOCRIT 32.1 % (36.0-47.0); HEMOGLOBIN 9.8 g/dl (12.0-15.5); LYMPH # 1.2 10^3/uL (1.5-5.0); LYMPH % 12.8 % (24.0-44.0); MEAN CORPUSCULAR HEMOGLOBIN 32.9 pg (27.0-33.0); MEAN CORPUSCULAR HGB CONC 30.5 g/dl (32.0-36.5); MEAN CORPUSCULAR VOLUME 107.7 fl (80.0-96.0); MONO # 0.6 10^3/uL (0.0-0.8); MONO % 6.2 % (2.0-8.0); NEUTROPHILS # 7.4 10^3/uL (1.5-8.5); NEUTROPHILS % 78.7 % (36.0-66.0); PLATELET COUNT, AUTOMATED 235 10^3/uL (150-450); RED BLOOD COUNT 2.98 10^6/uL (4.00-5.40); WHITE BLOOD COUNT 9.4 10^3/uL (4.0-10.0)
[2022-05-20 16:30] LABS: CREATININE FOR GFR 4.74 MG/DL (0.55-1.30); FREE T4 0.85 NG/DL (0.76-1.46); GLOMERULAR FILTRATION RATE 9.7 (>45); MAGNESIUM LEVEL 2.2 MG/DL (1.8-2.4); POTASSIUM SERUM 4.5 MEQ/L (3.5-5.1); THYROID STIMULATING HORMONE 1.97 uIU/ML (0.358-3.740)
[2022-05-20 17:15] VITALS: BP 132/52
== END 2022-05-20 18:00 | disposition home or self-care (01) ==
LOC: M ED 14:02
DX: N18.6 End stage renal disease (principal); R53.1 Weakness; I45.4 Nonspecific intraventricular block; E11.9 Type 2 diabetes mellitus without complications; K21.9 Gastro-esophageal reflux disease without esophagitis; Z79.4 Long term (current) use of insulin; Z79.899 Other long term (current) drug therapy

== ENCOUNTER → 2022-08-22 | Outpatient (CLI) | payer MEDICARE, OTHER ==
[2022-08-22 09:24] LABS: HEMATOCRIT 32.2 % (36.0-47.0); MEAN CORPUSCULAR HEMOGLOBIN 33.2 pg (27.0-33.0); MEAN CORPUSCULAR HGB CONC 31.1 g/dl (32.0-36.5); PLATELET COUNT, AUTOMATED 307 10^3/uL (150-450); RED BLOOD COUNT 3.01 10^6/uL (4.00-5.40); WHITE BLOOD COUNT 8.3 10^3/uL (4.0-10.0)
[2022-08-22 10:04] LABS: INR 1.03; PROTHROMBIN TIME 13.7 SECONDS (12.5-14.5)
== END ==
LOC: M LAB 08:12
PROVIDERS: ATTEND Dentist
DX: N17.9 Acute kidney failure, unspecified (principal)

== ENCOUNTER 2023-04-02 06:10 | Day surgery (SDC) | payer MEDICARE, OTHER ==
[~2023-04-02] VITALS: Ht 170.2 cm; Wt 149.7 kg
[~2023-04-02 06:10] MED LIST changes: +D200CAP3 PO; +ONDA4TAB6 PO
[2023-04-02] MEDS ORDERED: LR 1,000 ML IV SCH (06:45)
[2023-04-02] MEDS ORDERED: propofoL 200 MG/20 ML VIAL As Ordered ONE (07:48)
[2023-04-02] MEDS ORDERED: LIDOCAINE 2% 100MG/5ML SDV (FOR ANES.) As Ordered ONE (07:48)
[2023-04-02] MEDS ORDERED: ePHEDrine SULFATE 25 MG/5 ML(5MG/ML) SYRINGE As Ordered ONE ×2 (07:48→08:08)
[2023-04-02 08:50] VITALS: BP 99/58; TEMP 97.3; O2SAT 98
== END 2023-04-02 09:03 | disposition home or self-care (01) ==
LOC: M SDC 06:10
PROVIDERS: ATTEND Internal Medicine Gastroenterology
DX: D12.6 Benign neoplasm of colon, unspecified (principal); K64.0 First degree hemorrhoids; D64.9 Anemia, unspecified; R19.5 Other fecal abnormalities; K57.30 Diverticulosis of large intestine without perforation or abscess without bleeding; E11.9 Type 2 diabetes mellitus without complications; Z79.82 Long term (current) use of aspirin; Z79.899 Other long term (current) drug therapy; Z79.4 Long term (current) use of insulin

== ENCOUNTER 2025-01-28 03:45 | Emergency (ER) | payer MEDICARE, OTHER ==
[~2025-01-28] VITALS: Ht 170.2 cm; Wt 148.4 kg
[~2025-01-28 03:45] MED LIST changes: -LIDO1CRE42 TOP; +LIDO30CR18 TOP; -MIDO10TA PO; +MIDO10TA3 PO; +ONDA-282 PO; -ONDA4TAB6 PO
[2025-01-28 04:31] LABS: HEMATOCRIT 32.4 % (36.0-47.0); HEMOGLOBIN 10.2 g/dl (12.0-15.5); MEAN CORPUSCULAR HGB CONC 31.5 g/dl (32.0-36.5); MEAN CORPUSCULAR VOLUME 101.6 fl (80.0-96.0); PLATELET COUNT, AUTOMATED 315 10^3/uL (150-450); RED BLOOD COUNT 3.19 10^6/uL (4.00-5.40); WHITE BLOOD COUNT 12.1 10^3/uL (4.0-10.0)
[2025-01-28 05:04] LABS: CALCIUM LEVEL 8.5 MG/DL (8.3-10.6); CREATININE FOR GFR 6.27 MG/DL (0.55-1.30); GLOMERULAR FILTRATION RATE 6.6 (>39); POTASSIUM SERUM 3.7 MMOL/L (3.5-5.1)
[2025-01-28] MEDS: ONDANSETRON 4MG 2ML VIAL IV ONE (05:09)
[2025-01-28] MEDS: MORPHINE 4 MG/ML 1ML VIAL IV PRN (05:12)
[2025-01-28 07:21] VITALS: BP 110/56; TEMP 98.2; O2SAT 98
== END 2025-01-28 07:41 | disposition home or self-care (01) ==
LOC: M ED 03:45
DX: M54.50 Low back pain, unspecified (principal); E11.9 Type 2 diabetes mellitus without complications; Z79.899 Other long term (current) drug therapy; Z79.82 Long term (current) use of aspirin; Z79.624 Long term (current) use of inhibitors of nucleotide synthesis; Z79.4 Long term (current) use of insulin
CPT/HCPCS: 80048; 85027; 96374; 96375; 99284; J2405

== ENCOUNTER → 2025-09-27 | Outpatient (CLI) | payer MEDICARE, OTHER ==
[~2025-09-27] MED LIST changes: +HYDR12.510 PO; -HYDR12CA PO
== END ==
LOC: M CARPUL 13:07
PROVIDERS: ATTEND Internal Medicine Nephrology
DX: I95.9 Hypotension, unspecified (principal)